=== PATIENT | female | born 1975 | race Caucasian/White ===

== ENCOUNTER 2019-09-10 19:34 | Emergency (ER) | payer MEDICAID ==
[~2019-09-10] VITALS: Ht 165.1 cm; Wt 78.5 kg
[2019-09-10 19:45] VITALS: BP_SYST 101
--- NOTE | 2019-09-10 19:45 | NUR ---
PT TO REMAIN IN TENT UNTIL ER BED OPENS UP. V/S STABLE.
--- NOTE | 2019-09-10 19:50 | NUR ---
PT AAO AND AMBULATORY C/O SORE THROAT FOR THE PAST YEAR AND THAT IT "HURTS WORSE" TODAY. V/S STABLE. PT DENIES ANY OTHER S/S.
--- NOTE | 2019-09-10 20:17 | NUR ---
Pt did not want to stay, patient left without being seen. No further treatment needed. ER MD aware
== END 2019-09-10 20:17 | disposition left against medical advice (07) ==
LOC: SED 19:34
DX: J02.9 Acute pharyngitis, unspecified (principal); Z53.21 Procedure and treatment not carried out due to patient leaving prior to being seen by health care provider

== ENCOUNTER 2022-12-23 20:51 | Emergency (ER) | payer MEDICAID ==
[~2022-12-23] VITALS: Ht 157.5 cm; Wt 82.1 kg
[2022-12-23 21:09] VITALS: BP_SYST 117; PULSE 89; RESP 20; TEMP 97.7; O2SAT 98
[2022-12-23 22:58] VITALS: BP_SYST 117; PULSE 89; RESP 20; TEMP 97.7; O2SAT 98
== END 2022-12-23 22:58 | disposition home or self-care (01) ==
LOC: SED 20:51
DX: S60.212A Contusion of left wrist, initial encounter (principal); Z79.899 Other long term (current) drug therapy; W23.0XXA Caught, crushed, jammed, or pinched between moving objects, initial encounter; Y93.89 Activity, other specified; Y92.89 Other specified places as the place of occurrence of the external cause; Y99.8 Other external cause status
CPT/HCPCS: 73090; 99284